=== PATIENT | female | born 1970 | race Caucasian/White ===

== ENCOUNTER 2016-11-15 10:01 | Emergency (ER) | payer BC ==
[~2016-11-15] VITALS: Ht 160 cm; Wt 80.0 kg
[2016-11-15 10:03] VITALS: BP 140/80; PULSE 90; RESP 20; TEMP 99; O2SAT 99
[2016-11-15] MEDS ORDERED: CIPR-9 PO (10:57)
--- NOTE | 2016-11-15 10:57 | PD ---
HPI Chief Complaint: ENT Complaint Time Seen by Provider: 10:40 Travel History International Travel<30 days: Yes Contact w/Intl Traveler<30days: Yes Name of Country Traveled to: [place] [facility], [facility], [facility] Traveled to known affect area: Yes History of Present Illness HPI 46-year-old female presents emergency department for evaluation of bilateral ear pain 3 days. Patient reports she was seen at medical clinic yesterday where she was diagnosed with otitis externa she had ear tali placed and discharged home with ciprofloxacin drops and amoxicillin. She reports she does not believe the drops or getting down into her ears. She reports the pain has not improved. She denies fever or chills. She denies headache. PFSH Past Medical History Medical History: Denies Significant Hx Medical other: Yes () Thyroid Disease: Yes ?: Not Past Surgical History Ear Surgery: Yes (tubes in ears) Hysterectomy: Yes (partial) Tonsillectomy: Yes Social History Alcohol Use: No Tobacco Use: No Substance Use: No Allergies-Medications (Allergen,Severity, Reaction): Coded Allergies: No Known Allergies (Unverified , 11/15/16) Reported Meds & Prescriptions Reported Meds & Active Scripts Active Cipro (Ciprofloxacin HCl) 500 Mg Tab 500 Mg PO BID Review of Systems Except as stated in HPI: all other systems reviewed are Neg General / Constitutional: No: Fever Physical Exam Narrative GENERAL: Well-nourished, well-developed patient. SKIN: Focused skin assessment warm/dry. HEAD: Normocephalic. EYES: No scleral icterus. No injection or drainage. EARS: Ear tali in place bilaterally. Moderate canal swelling noted. No external ear cellulitis present. No mastoid tenderness or overlying erythema. NECK: Supple, trachea midline. No JVD or lymphadenopathy. CARDIOVASCULAR: Regular rate and rhythm without murmurs, gallops, or rubs. RESPIRATORY: Breath sounds equal bilaterally. No accessory muscle use. GASTROINTESTINAL: Abdomen soft, non-tender, nondistended. MUSCULOSKELETAL: No cyanosis, or edema. BACK: Nontender without obvious deformity. No CVA tenderness. Data Data Last Documented VS Orders Ketorolac Inj (Toradol Inj) (11/15/16 11:00) MDM Medical Decision Making Medical Screen Exam Complete: Yes Emergency Medical Condition: Yes Differential Diagnosis Otitis externa, otitis media, clinically ruled out mastoiditis Narrative Course 46-year-old female here on vacation presents to the emergency department for evaluation of bilateral ear pain. She was seen at a [facility] clinic yesterday diagnosed with otitis externa she had ear tali placed and discharged home with prescription for ciprofloxacin otic and amoxicillin. She reports the ear canal swelling has not improved. She reports continued pain in the ears. She denies fever or chills. Patient reports she does not feel that the antibiotic drops or getting down into the ear. Her physical exam is reassuring. She has ear tali in place bilaterally. Mild Canal swelling. No mastoid tenderness or overlying erythema. No cellulitis of the external ear. Patient we put on oral Cipro and instructed to return if symptoms worsen. Patient agrees to plan. Diagnosis Primary Impression: Otitis externa Qualified Code: H60.503 - Acute otitis externa of both ears, unspecified type Referrals: Primary Care Physician Additional Instructions: Take the antibiotics as prescribed. Continue with the otic solution drops. Take [id number] Motrin and/or Tylenol for pain. Return to emergency department if he developed new or worsening symptoms. Scripts Ciprofloxacin (Cipro)500 Mg Ihs550 Mg PO BID #14 TAB Ref 0 Prov:Deloris Lacey 11/15/16 Disposition: DISCHARGE HOME Condition: Stable Deloris Lacey Nov 15, 2016 10:56 Take the antibiotics as prescribed. Continue with the otic solution drops. Take [id number] Motrin and/or Tylenol for pain. Return to emergency department if he developed new or worsening symptoms. Scripts Ciprofloxacin (Cipro)500 Mg [id number] Mg PO BID #14 TAB Ref 0 Prov:Deloris Lacey 11/15/16 Disposition: 01 DISCHARGE HOME Condition: Stable Deloris Lacey Nov 15, 2016 10:56
[2016-11-15] MEDS ORDERED: KETOROLAC TROMETHAMINE 60 MG/2 ML (IM) VIAL IM ONE (11:00)
== END 2016-11-15 11:23 | disposition home or self-care (01) ==
LOC: NEPK 10:01
DX: H60.93 Unspecified otitis externa, bilateral (principal); E07.9 Disorder of thyroid, unspecified; Z79.899 Other long term (current) drug therapy
CPT/HCPCS: 96372; 99284; J1885